=== PATIENT | female | born 1980 | race African-American/Black ===

== ENCOUNTER 2023-12-12 12:40 | Emergency (ER) | payer MEDICARE ==
[~2023-12-12] VITALS: Ht 147.3 cm; Wt 63.0 kg
[~2023-12-12 12:40] MED LIST: ATIV1TAB10 PO; BACL1TAB9 PO; CYMB60CA4 PO; DICL75TA PO; LINZ72CA PO; LYRI150C PO; NEUR600T PO; ONDA-84 PO; OXYC20TA2 PO; PROM25TA12 PO; VENTAER INH; flovent diskus INH; phenergan PO
[2023-12-12 12:46] VITALS: TEMP 98.8
[2023-12-12] MEDS: ACETAMINOPHEN 500 MG TAB PO ONE (14:41)
[2023-12-12] MEDS ORDERED: NARC1SPR NARES (16:28)
[2023-12-12] MEDS ORDERED: PERCOCET PO (16:28)
[2023-12-12] MEDS: LIDOCAINE 5% (LIDODERM) PATCH TD ONE (16:28)
[2023-12-12] MEDS: KETOROLAC 30 MG/ML 1ML VIAL IM ONE (16:28)
[2023-12-12 16:53] VITALS: BP 145/94; O2SAT 97
[2023-12-13] MEDS ORDERED: LYRI150C PO (10:16)
== END 2023-12-12 16:54 | disposition home or self-care (01) ==
LOC: M ED 12:40
DX: M51.369 Other intervertebral disc degeneration, lumbar region without mention of lumbar back pain or lower extremity pain (principal); F41.9 Anxiety disorder, unspecified; K58.9 Irritable bowel syndrome, unspecified; Z85.3 Personal history of malignant neoplasm of breast; Z92.21 Personal history of antineoplastic chemotherapy; F17.200 Nicotine dependence, unspecified, uncomplicated; Z79.899 Other long term (current) drug therapy; Z88.2 Allergy status to sulfonamides; Z88.8 Allergy status to other drugs, medicaments and biological substances
CPT/HCPCS: 72110; 96372; 99283; J1100; J1885

== ENCOUNTER → 2024-01-13 | Outpatient (CLI) | payer MEDICARE ==
[~2024-01-13] VITALS: Ht 147.3 cm; Wt 63.6 kg
[~2024-01-13] MED LIST changes: +NARC1SPR NARES; +PERCOCET PO; +PROC5TAB57 PO
[2024-01-13 10:39] VITALS: BP 139/81; O2SAT 100
[2024-01-13 11:37] LABS: AMPHETAMINES LEVEL URINE NEGATIVE (NEGATIVE); BARBITURATES URINE NEGATIVE (NEGATIVE); BENZODIAZEPINES URINE NEGATIVE (NEGATIVE); COCAINE METABOLITE URINE NEGATIVE (NEGATIVE); METHADONE URINE NEGATIVE (NEGATIVE); PHENCYCLIDINE URINE NEGATIVE (NEGATIVE)
[2024-01-13 11:42] LABS: CANNABINOIDS URINE POSITIVE (NEGATIVE); OPIATES URINE POSITIVE (NEGATIVE)
== END ==
LOC: M PAL 10:03
PROVIDERS: ATTEND Nurse Practitioner Adult Health
DX: C50.912 Malignant neoplasm of unspecified site of left female breast (principal); G89.29 Other chronic pain; M25.559 Pain in unspecified hip; M54.50 Low back pain, unspecified; F41.8 Other specified anxiety disorders; G89.3 Neoplasm related pain (acute) (chronic); R11.0 Nausea; F17.200 Nicotine dependence, unspecified, uncomplicated; Z51.5 Encounter for palliative care; Z88.1 Allergy status to other antibiotic agents; Z88.2 Allergy status to sulfonamides; Z79.891 Long term (current) use of opiate analgesic; Z79.899 Other long term (current) drug therapy; Z88.8 Allergy status to other drugs, medicaments and biological substances; Z80.7 Family history of other malignant neoplasms of lymphoid, hematopoietic and related tissues; Z90.13 Acquired absence of bilateral breasts and nipples; Z92.21 Personal history of antineoplastic chemotherapy; Z92.3 Personal history of irradiation
CPT/HCPCS: 80307; G0463

== ENCOUNTER → 2024-02-16 | Outpatient (CLI) | payer MEDICARE ==
[~2024-02-16] VITALS: Ht 147.3 cm; Wt 60.0 kg
[2024-02-16 08:17] VITALS: BP 133/90; O2SAT 95
== END ==
LOC: M PAL 08:05
PROVIDERS: ATTEND Nurse Practitioner Adult Health
DX: Z51.5 Encounter for palliative care (principal); C50.912 Malignant neoplasm of unspecified site of left female breast; G89.3 Neoplasm related pain (acute) (chronic); G89.29 Other chronic pain; I89.0 Lymphedema, not elsewhere classified; M54.50 Low back pain, unspecified; M25.551 Pain in right hip; R11.0 Nausea; F41.8 Other specified anxiety disorders; F17.200 Nicotine dependence, unspecified, uncomplicated; Z88.1 Allergy status to other antibiotic agents; Z88.2 Allergy status to sulfonamides; Z88.8 Allergy status to other drugs, medicaments and biological substances; Z79.891 Long term (current) use of opiate analgesic; Z79.899 Other long term (current) drug therapy; Z80.6 Family history of leukemia; Z80.7 Family history of other malignant neoplasms of lymphoid, hematopoietic and related tissues; Z90.13 Acquired absence of bilateral breasts and nipples; Z92.21 Personal history of antineoplastic chemotherapy; Z92.3 Personal history of irradiation

== ENCOUNTER → 2024-04-19 | Outpatient (CLI) | payer MEDICARE ==
[~2024-04-19] MED LIST changes: +HYDR50TA70 PO
== END ==
LOC: M PAL 15:12
PROVIDERS: ATTEND Family Medicine
DX: C50.919 Malignant neoplasm of unspecified site of unspecified female breast (principal); F41.9 Anxiety disorder, unspecified; Z90.13 Acquired absence of bilateral breasts and nipples; Z92.3 Personal history of irradiation; Z92.21 Personal history of antineoplastic chemotherapy; Z79.891 Long term (current) use of opiate analgesic; Z79.899 Other long term (current) drug therapy; Z88.2 Allergy status to sulfonamides; Z88.8 Allergy status to other drugs, medicaments and biological substances

== ENCOUNTER → 2024-05-17 | Outpatient (CLI) | payer MEDICARE ==
[~2024-05-17] VITALS: Ht 147.3 cm; Wt 58.3 kg
[~2024-05-17] MED LIST changes: +MIRA3350 PO; +SENN8.6T28 PO
[2024-05-17 15:08] VITALS: BP 108/71; O2SAT 94
== END ==
LOC: M PAL 14:55
PROVIDERS: ATTEND Physician Assistant
DX: C50.919 Malignant neoplasm of unspecified site of unspecified female breast (principal); K59.00 Constipation, unspecified; Z90.12 Acquired absence of left breast and nipple; Z92.21 Personal history of antineoplastic chemotherapy; Z92.3 Personal history of irradiation; I89.0 Lymphedema, not elsewhere classified; G89.29 Other chronic pain; Z79.899 Other long term (current) drug therapy; Z88.2 Allergy status to sulfonamides; Z88.8 Allergy status to other drugs, medicaments and biological substances

== ENCOUNTER → 2024-09-11 | Outpatient (CLI) | payer MEDICARE ==
[~2024-09-11] VITALS: Ht 148.6 cm; Wt 52.7 kg
[~2024-09-11] MED LIST changes: +ATRO0.063 INH; +FLUT250B IH; +IBUP80TA PO; +IPRAINH INH; +PRED10TA2 PO; +PRIL20TA2 PO; +SUBO2MIS SL
[2024-09-11 13:35] VITALS: BP 163/108; O2SAT 97
== END ==
LOC: M PAL 13:21
PROVIDERS: ATTEND Physician Assistant
DX: Z51.5 Encounter for palliative care (principal); Z85.3 Personal history of malignant neoplasm of breast; Z90.13 Acquired absence of bilateral breasts and nipples; Z92.21 Personal history of antineoplastic chemotherapy; Z92.3 Personal history of irradiation; G89.29 Other chronic pain; Z79.891 Long term (current) use of opiate analgesic; Z88.2 Allergy status to sulfonamides; Z88.5 Allergy status to narcotic agent; Z88.6 Allergy status to analgesic agent; Z79.899 Other long term (current) drug therapy

== ENCOUNTER 2024-09-16 11:30 | Inpatient (IN) | payer MEDICARE ==
[~2024-09-16] VITALS: Ht 147.3 cm; Wt 52.5 kg
[~2024-09-16 11:30] MED LIST changes: -ATRO0.063 INH
[2024-09-16 13:27] LABS: BASO # 0.1 10^3/uL (0.0-0.2); BASO % 0.5 % (0.0-1.0); EOS # 0.1 10^3/uL (0.0-0.5); EOS % 0.5 % (0.0-3.0); LYMPH # 0.9 10^3/uL (1.5-5.0); LYMPH % 7.4 % (24.0-44.0); MONO # 1.3 10^3/uL (0.0-0.8); MONO % 10.0 % (2.0-8.0); NEUTROPHILS # 10.3 10^3/uL (1.5-8.5); NEUTROPHILS % 81.1 % (36.0-66.0); PLATELET COUNT, AUTOMATED 241 10^3/uL (150-450)
[2024-09-16 13:39] LABS: C REACTIVE PROTEIN QUANTITATIV 19.04 MG/DL (<1.0); CALCIUM LEVEL 9.0 MG/DL (8.5-10.1); CARBON DIOXIDE LEVEL 33 MMOL/L (20-31); CHLORIDE LEVEL 98 MMOL/L (98-107); CREATININE FOR GFR 0.66 MG/DL (0.55-1.30); GLOMERULAR FILTRATION RATE > 90.0 (>58); POTASSIUM SERUM 3.3 MMOL/L (3.5-5.1); SODIUM LEVEL 141 MMOL/L (136-145)
[2024-09-16 13:40] LABS: ERYTHROCYTE SEDIMENTATION RATE 77 mm/hr (0-20)
[2024-09-16] MEDS ORDERED: ISOVUE-370 76% 100 ML VIAL As Ordered ONE (14:12)
[2024-09-16] MEDS: ceFAZolin SODIUM 2 GM in DEXTROSE 5% (D5W) ADV/MINI-BAG 50 ML IV ONE (14:28)
[2024-09-16] MEDS ORDERED: ATRO0.063 INH (15:33)
[2024-09-16] MEDS ORDERED: VENTAER INH (15:33)
[2024-09-16] MEDS ORDERED: ONDA-84 PO (15:45)
[2024-09-16] MEDS ORDERED: OXYC20TA2 PO (15:45)
[2024-09-16] MEDS ORDERED: HOME MED LIST COMPLETE! XX SCH (15:50)
[2024-09-16] MEDS: NS (Normal Saline) 0.9% 1,000 ML IV ONE (16:23)
[2024-09-16] MEDS ORDERED: ONDANSETRON 4MG TAB PO PRN (16:45)
[2024-09-16] MEDS: FLUTICASONE HFA 220 MCG 12 GM INHALER INH SCH (20:41)
[2024-09-16] MEDS: IPRATROPIUM HFA INHALER 12.9 GRAMS INH SCH (20:41)
[2024-09-16] MEDS: PREGABALIN 75 MG CAP PO SCH (21:51)
[2024-09-16] MEDS: ceFAZolin SODIUM 2 GM in DEXTROSE 5% (D5W) ADV/MINI-BAG 50 ML IV SCH (21:52)
[2024-09-16 22:00] VITALS: BP 144/95; TEMP 97.7; O2SAT 100
[2024-09-16] MEDS: LR 1,000 ML IV SCH (22:34)
[2024-09-16] MEDS: BACLOFEN 10 MG TAB PO PRN (23:02)
[2024-09-17] VITALS (7 sets, daily range): BP systolic 140–169; BP diastolic 83–115; TEMP 97.4–98.8; O2SAT 93–99
[2024-09-17] MEDS: ACETAMINOPHEN 325 MG TAB PO PRN (01:36)
[2024-09-17 02:52] LABS: AMPHETAMINES LEVEL URINE NEGATIVE (NEGATIVE); BARBITURATES URINE NEGATIVE (NEGATIVE); BENZODIAZEPINES URINE NEGATIVE (NEGATIVE); COCAINE METABOLITE URINE NEGATIVE (NEGATIVE); METHADONE URINE NEGATIVE (NEGATIVE); PHENCYCLIDINE URINE NEGATIVE (NEGATIVE)
[2024-09-17 02:54] LABS: CANNABINOIDS URINE POSITIVE (NEGATIVE); OPIATES URINE POSITIVE (NEGATIVE)
[2024-09-17 06:48] LABS: PLATELET COUNT, AUTOMATED 204 10^3/uL (150-450)
[2024-09-17 06:54] LABS: INR 1.06
[2024-09-17 07:06] LABS: ALT/SGPT < 9 U/L (7.0-40); AST/SGOT 13 U/L (<34); CALCIUM LEVEL 8.3 MG/DL (8.5-10.1); CARBON DIOXIDE LEVEL 30 MMOL/L (20-31); CHLORIDE LEVEL 103 MMOL/L (98-107); CREATININE FOR GFR 0.59 MG/DL (0.55-1.30); GLOMERULAR FILTRATION RATE > 90.0 (>58); MAGNESIUM LEVEL 1.5 MG/DL (1.8-2.4); POTASSIUM SERUM 3.4 MMOL/L (3.5-5.1); SODIUM LEVEL 140 MMOL/L (136-145)
[2024-09-17 08:04] LABS: ESTIMATED AVERAGE GLUCOSE 100.0 MG/DL (60-110)
[2024-09-17] MEDS: ISOVUE-300 61% 100 ML VIAL IV SCH (08:05)
[2024-09-17] MEDS: NS (Normal Saline) 0.9% 1,000 ML IV SCH (08:05)
[2024-09-17] MEDS: SODIUM CHLORIDE 0.9% 1000 ML XX SCH (08:05)
[2024-09-17] MEDS ORDERED: VANCOMYCIN HCL 1,000 MG, VIAL MATE ADAPTER 1 EACH in NS 250 ML IV SCH (08:45)
[2024-09-17] MEDS: MIDAZOLAM INJ 2 MG/2 ML VIAL IV PRN (08:46)
[2024-09-17] MEDS: ENOXAPARIN 40 MG/0.4 ML SYRINGE (J1650 PER 10MG) SC SCH (09:00)
[2024-09-17] MEDS ORDERED: MIDAZOLAM INJ 2 MG/2 ML VIAL As Ordered ONE (10:20)
[2024-09-17] MEDS: LIDOCAINE 1% MDV 20 ML VIAL SC SCH (10:45)
[2024-09-17] MEDS: VANCOMYCIN HCL 1,250 MG, VIAL MATE ADAPTER 1 EACH in NS 250 ML IV ONE (11:28)
[2024-09-17] MEDS: POTASSIUM CHLORIDE 10MEQ SR TABLET PO ONE (12:25)
[2024-09-17] MEDS: HYDROMORPHONE HCL 0.5 MG/0.5 ML SYRINGE IV PRN ×2 (13:23→19:45)
[2024-09-17] MEDS: MAG SULF 1GM/100ML (MAG RUN) 1 GM in IV 1 EA IV SCH (14:50)
[2024-09-17] MEDS: VANCOMYCIN HCL 750 MG, VIAL MATE ADAPTER 1 EACH in NS 250 ML IV SCH (18:14)
[2024-09-18 03:05] VITALS: BP 148/86; TEMP 97.4; O2SAT 90
[2024-09-18] MEDS: HYDROmorphone HCL 2 MG/ML 1 ML VIAL IV PRN (05:37)
[2024-09-18 07:09] LABS: BASO # 0.1 10^3/uL (0.0-0.2); BASO % 0.6 % (0.0-1.0); EOS # 0.1 10^3/uL (0.0-0.5); EOS % 0.8 % (0.0-3.0); LYMPH # 0.9 10^3/uL (1.5-5.0); LYMPH % 8.9 % (24.0-44.0); MONO # 1.5 10^3/uL (0.0-0.8); MONO % 15.4 % (2.0-8.0); NEUTROPHILS # 7.3 10^3/uL (1.5-8.5); NEUTROPHILS % 73.6 % (36.0-66.0); PLATELET COUNT, AUTOMATED 193 10^3/uL (150-450)
[2024-09-18 07:44] LABS: ALT/SGPT < 9 U/L (7.0-40); AST/SGOT 12 U/L (<34); C REACTIVE PROTEIN QUANTITATIV 13.45 MG/DL (<1.0); CALCIUM LEVEL 8.0 MG/DL (8.5-10.1); CARBON DIOXIDE LEVEL 27 MMOL/L (20-31); CHLORIDE LEVEL 101 MMOL/L (98-107); CREATININE FOR GFR 0.49 MG/DL (0.55-1.30); GLOMERULAR FILTRATION RATE > 90.0 (>58); MAGNESIUM LEVEL 1.5 MG/DL (1.8-2.4); POTASSIUM SERUM 3.7 MMOL/L (3.5-5.1); SODIUM LEVEL 138 MMOL/L (136-145)
[2024-09-18 07:46] VITALS: BP 152/90; TEMP 97.3; O2SAT 92
[2024-09-18] MEDS: KETOROLAC 30 MG/ML 1 ML VIAL IV SCH (08:11)
[2024-09-18] MEDS: PANTOPRAZOLE 40MG TAB PO SCH (08:11)
[2024-09-18] MEDS: ACETAMINOPHEN 500 MG TAB PO SCH (08:12)
[2024-09-18] MEDS: MIRALAX *UNIT DOSE* 17 GM PACKET PO SCH (09:00)
[2024-09-18] MEDS: MAGNESIUM OXIDE 400 MG TAB PO SCH (10:15)
[2024-09-18] MEDS: MAG SULF 1GM/100ML (MAG RUN) 1 GM in IV 1 EA IV ONE (10:15)
[2024-09-18] MEDS: HYDROMORPHONE HCL 0.5 MG/0.5 ML SYRINGE IV PRN (10:16)
[2024-09-18] MEDS ORDERED: BISACODYL 10 MG SUPP PR PRN (10:50)
[2024-09-18] MEDS: PIPERACILLIN/TAZOBACTAM SOD 3.375 GM in DEXTROSE 5% (D5W) ADV/MINI-BAG 50 ML IV SCH (11:44)
[2024-09-18 12:00] VITALS: BP 156/98; TEMP 96.9; O2SAT 95
[2024-09-18] MEDS: SENNOSIDES/DOCUSATE SODIUM 8.6 MG/50MG TAB PO SCH (13:41)
[2024-09-18 16:00] VITALS: BP 140/96; TEMP 97.4; O2SAT 96
[2024-09-18] MEDS: ONDANSETRON 4MG TAB PO PRN (16:57)
[2024-09-18 20:09] VITALS: BP 128/71; TEMP 97.2; O2SAT 92
[2024-09-18 23:57] VITALS: BP 121/75; TEMP 97.5; O2SAT 92
[2024-09-19] MEDS: HYDROMORPHONE HCL 0.5 MG/0.5 ML SYRINGE IV PRN (00:10)
[2024-09-19 07:33] VITALS: BP 142/86; TEMP 97.6; O2SAT 90
[2024-09-19 11:15] LABS: BASO # 0.0 10^3/uL (0.0-0.2); BASO % 0.3 % (0.0-1.0); EOS # 0.1 10^3/uL (0.0-0.5); EOS % 1.0 % (0.0-3.0); LYMPH # 0.6 10^3/uL (1.5-5.0); LYMPH % 6.3 % (24.0-44.0); MONO # 1.2 10^3/uL (0.0-0.8); MONO % 11.7 % (2.0-8.0); NEUTROPHILS # 8.1 10^3/uL (1.5-8.5); NEUTROPHILS % 80.4 % (36.0-66.0); PLATELET COUNT, AUTOMATED 201 10^3/uL (150-450)
[2024-09-19 11:35] LABS: CALCIUM LEVEL 8.2 MG/DL (8.5-10.1); CARBON DIOXIDE LEVEL 25 MMOL/L (20-31); CHLORIDE LEVEL 107 MMOL/L (98-107); CREATININE FOR GFR 0.59 MG/DL (0.55-1.30); GLOMERULAR FILTRATION RATE > 90.0 (>58); POTASSIUM SERUM 4.4 MMOL/L (3.5-5.1); SODIUM LEVEL 144 MMOL/L (136-145)
[2024-09-19] MEDS: VANCOMYCIN HCL 1,000 MG, VIAL MATE ADAPTER 1 EACH in NS 250 ML IV SCH (12:11)
[2024-09-19 15:20] VITALS: O2SAT 85
[2024-09-19 15:30] VITALS: O2SAT 98
[2024-09-19 16:00] VITALS: BP 124/84; TEMP 97.8; O2SAT 95
[2024-09-19 20:15] VITALS: BP 121/71; TEMP 97.7; O2SAT 98
[2024-09-20 03:36] VITALS: BP 147/92; TEMP 97; O2SAT 100
[2024-09-20 07:26] LABS: BASO # 0.0 10^3/uL (0.0-0.2); BASO % 0.4 % (0.0-1.0); CALCIUM LEVEL 8.0 MG/DL (8.5-10.1); CARBON DIOXIDE LEVEL 33 MMOL/L (20-31); CHLORIDE LEVEL 104 MMOL/L (98-107); CREATININE FOR GFR 0.65 MG/DL (0.55-1.30); EOS # 0.1 10^3/uL (0.0-0.5); EOS % 1.5 % (0.0-3.0); GLOMERULAR FILTRATION RATE > 90.0 (>58); LYMPH # 0.8 10^3/uL (1.5-5.0); LYMPH % 8.6 % (24.0-44.0); MAGNESIUM LEVEL 1.6 MG/DL (1.8-2.4); MONO # 1.2 10^3/uL (0.0-0.8); MONO % 12.5 % (2.0-8.0); NEUTROPHILS # 7.1 10^3/uL (1.5-8.5); NEUTROPHILS % 76.7 % (36.0-66.0); PLATELET COUNT, AUTOMATED 205 10^3/uL (150-450); POTASSIUM SERUM 3.6 MMOL/L (3.5-5.1); SODIUM LEVEL 142 MMOL/L (136-145)
[2024-09-20 07:43] VITALS: BP 136/71; TEMP 97.9; O2SAT 95
[2024-09-20 07:47] VITALS: O2SAT 95
[2024-09-20] MEDS: MAG SULF 1GM/100ML (MAG RUN) 1 GM in IV 1 EA IV ONE (09:09)
[2024-09-20 15:27] VITALS: BP 141/94; O2SAT 95
[2024-09-20 16:16] VITALS: TEMP 98.1
[2024-09-20 20:10] VITALS: BP 139/92; TEMP 98; O2SAT 93
[2024-09-20] MEDS: traZODone 50 MG TAB PO ONE (22:35)
[2024-09-20] MEDS: HYDROmorphone 2 MG TAB PO ONE (22:36)
[2024-09-21] VITALS (21 sets, daily range): BP systolic 119–146; BP diastolic 66–92; TEMP 97.3–98.9; O2SAT 35–100
[2024-09-21] MEDS: KETOROLAC TROMETHAMINE 10 MG TAB PO SCH (01:08)
[2024-09-21] MEDS: HYDROmorphone 2 MG TAB PO PRN (03:37)
[2024-09-21 08:37] LABS: BASO # 0.0 10^3/uL (0.0-0.2); BASO % 0.4 % (0.0-1.0); EOS # 0.1 10^3/uL (0.0-0.5); EOS % 0.5 % (0.0-3.0); LYMPH # 0.9 10^3/uL (1.5-5.0); LYMPH % 7.9 % (24.0-44.0); MONO # 0.5 10^3/uL (0.0-0.8); MONO % 4.6 % (2.0-8.0); NEUTROPHILS # 9.3 10^3/uL (1.5-8.5); NEUTROPHILS % 85.9 % (36.0-66.0); PLATELET COUNT, AUTOMATED 238 10^3/uL (150-450)
[2024-09-21 09:01] LABS: CALCIUM LEVEL 8.3 MG/DL (8.5-10.1); CARBON DIOXIDE LEVEL 29 MMOL/L (20-31); CHLORIDE LEVEL 105 MMOL/L (98-107); CREATININE FOR GFR 0.64 MG/DL (0.55-1.30); GLOMERULAR FILTRATION RATE > 90.0 (>58); POTASSIUM SERUM 3.7 MMOL/L (3.5-5.1); SODIUM LEVEL 144 MMOL/L (136-145)
[2024-09-21] MEDS: FUROSEMIDE 40 MG/4 ML VIAL IV ONE (10:41)
[2024-09-21] MEDS: IPRATROPIUM 0.5 MG/ALBUTEROL 2.5 MG INH SOL UD 3 ML NEB SCH (11:07)
[2024-09-21] MEDS: SYMBICORT 160/4.5MCG INHALER 6GM INH SCH (11:20)
[2024-09-21 11:29] LABS: ABG pH (ARTERIAL) 7.460 UNITS (7.350-7.450)
[2024-09-21 11:32] LABS: ABG BASE EXCESS 3.7 (-2.0-2.0); ABG HCO3 27.7 MMOL/L (22.0-26.0); ABG O2 SATURATION 84.4 % (95.0-99.0); ABG PARTIAL PRESSURE CO2 39.9 mmHg (35.0-45.0); ABG PARTIAL PRESSURE O2 51.1 mmHg (75.0-100.0); ABG STANDARD HCO3 27.5 MMOL/L. (22.0-26.0); ABG TOTAL CO2 29.0 MMOL/L (22.0-29.0)
[2024-09-21 15:38] LABS: C REACTIVE PROTEIN QUANTITATIV 24.11 MG/DL (<1.0)
[2024-09-21] MEDS ORDERED: ONDANSETRON 4MG 2ML VIAL As Ordered ONE (16:50)
[2024-09-21] MEDS ORDERED: LIDOCAINE 2% 100 MG/5 ML SDV (FOR ANES.) As Ordered ONE (16:50)
[2024-09-21] MEDS ORDERED: dexAMETHasone 4 MG/ML 1 ML VIAL As Ordered ONE (16:50)
[2024-09-21] MEDS: CEPHALEXIN 500 MG CAP PO SCH (17:40)
[2024-09-22] VITALS (24 sets, daily range): BP systolic 137–174; BP diastolic 85–101; TEMP 97–97.8; O2SAT 84–100
[2024-09-22 10:38] LABS: BASO # 0.0 10^3/uL (0.0-0.2); BASO % 0.1 % (0.0-1.0); EOS # 0.0 10^3/uL (0.0-0.5); EOS % 0.0 % (0.0-3.0); LYMPH # 0.6 10^3/uL (1.5-5.0); LYMPH % 4.3 % (24.0-44.0); MONO # 0.5 10^3/uL (0.0-0.8); MONO % 3.3 % (2.0-8.0); NEUTROPHILS # 12.4 10^3/uL (1.5-8.5); NEUTROPHILS % 91.6 % (36.0-66.0); PLATELET COUNT, AUTOMATED 254 10^3/uL (150-450)
[2024-09-22 11:07] LABS: CALCIUM LEVEL 8.7 MG/DL (8.5-10.1); CARBON DIOXIDE LEVEL 32 MMOL/L (20-31); CHLORIDE LEVEL 102 MMOL/L (98-107); CREATININE FOR GFR 0.61 MG/DL (0.55-1.30); GLOMERULAR FILTRATION RATE > 90.0 (>58); POTASSIUM SERUM 4.0 MMOL/L (3.5-5.1); SODIUM LEVEL 141 MMOL/L (136-145)
[2024-09-22] MEDS: LEVALBUTEROL HFA 45 MCG/ACT 15 GM INHALER INH SCH (12:00)
[2024-09-22] MEDS ORDERED: LEVALBUTEROL HFA 45 MCG/ACT 15 GM INHALER INH PRN (13:35)
[2024-09-22] MEDS ORDERED: SODIUM CHLORIDE 0.9% INJ 10 ML SYR IV PRN (14:50)
[2024-09-22] MEDS: FUROSEMIDE 40 MG/4 ML VIAL IV ONE (15:07)
[2024-09-22] MEDS: ERTAPENEM SODIUM 1 GM in NS MINI-BAG PLUS 50 ML IV SCH (15:09)
[2024-09-22] MEDS: SODIUM CHLORIDE 0.9% INJ 10 ML SYR IV SCH (15:11)
[2024-09-22] MEDS ORDERED: LEVALBUTEROL HFA 45 MCG/ACT 15 GM INHALER INH SCH (16:00)
[2024-09-22] MEDS: ALBUTEROL 90 MCG/ACT 8 GM HFA INHALER INH PRN (23:45)
[2024-09-23] VITALS (21 sets, daily range): BP systolic 143–184; BP diastolic 89–112; TEMP 96.7–97.8; O2SAT 85–100
[2024-09-23 05:38] LABS: BASO # 0.0 10^3/uL (0.0-0.2); BASO % 0.1 % (0.0-1.0); EOS # 0.0 10^3/uL (0.0-0.5); EOS % 0.0 % (0.0-3.0); LYMPH # 0.7 10^3/uL (1.5-5.0); LYMPH % 8.0 % (24.0-44.0); MONO # 0.6 10^3/uL (0.0-0.8); MONO % 6.7 % (2.0-8.0); NEUTROPHILS # 7.6 10^3/uL (1.5-8.5); NEUTROPHILS % 83.8 % (36.0-66.0); PLATELET COUNT, AUTOMATED 252 10^3/uL (150-450)
[2024-09-23 05:58] LABS: CALCIUM LEVEL 8.6 MG/DL (8.5-10.1); CARBON DIOXIDE LEVEL 35 MMOL/L (20-31); CHLORIDE LEVEL 101 MMOL/L (98-107); CREATININE FOR GFR 0.68 MG/DL (0.55-1.30); GLOMERULAR FILTRATION RATE > 90.0 (>58); POTASSIUM SERUM 4.2 MMOL/L (3.5-5.1); SODIUM LEVEL 145 MMOL/L (136-145)
[2024-09-23] MEDS: FLUTICASONE HFA 110 MCG 12 GM INHALER INH SCH (08:00)
[2024-09-23] MEDS: amLODIPine 10 MG TAB PO SCH (09:29)
[2024-09-23] MEDS: MORPHINE 2 MG/ML 1 ML VIAL IV PRN (13:54)
[2024-09-23] MEDS: HEPARIN LOCK FLUSH 100 UNITS/ML 3 ML SYRINGE IV SCH (17:12)
[2024-09-23] MEDS: SODIUM CHLORIDE 0.9% INJ 10 ML SYR IV SCH (17:13)
[2024-09-24] VITALS (38 sets, daily range): BP systolic 146–178; BP diastolic 89–98; TEMP 97.2–98.4; O2SAT 86–100
[2024-09-24 05:17] LABS: BASO # 0.0 10^3/uL (0.0-0.2); BASO % 0.1 % (0.0-1.0); EOS # 0.0 10^3/uL (0.0-0.5); EOS % 0.0 % (0.0-3.0); LYMPH # 0.8 10^3/uL (1.5-5.0); LYMPH % 9.1 % (24.0-44.0); MONO # 0.7 10^3/uL (0.0-0.8); MONO % 7.9 % (2.0-8.0); NEUTROPHILS # 7.5 10^3/uL (1.5-8.5); NEUTROPHILS % 81.4 % (36.0-66.0); PLATELET COUNT, AUTOMATED 295 10^3/uL (150-450)
[2024-09-24 05:41] LABS: CALCIUM LEVEL 8.3 MG/DL (8.5-10.1); CARBON DIOXIDE LEVEL 36 MMOL/L (20-31); CHLORIDE LEVEL 101 MMOL/L (98-107); CREATININE FOR GFR 0.67 MG/DL (0.55-1.30); GLOMERULAR FILTRATION RATE > 90.0 (>58); POTASSIUM SERUM 4.1 MMOL/L (3.5-5.1); SODIUM LEVEL 145 MMOL/L (136-145)
[2024-09-24] MEDS: MORPHINE 2 MG/ML 1 ML VIAL IV ONE (14:28)
[2024-09-24] MEDS: HEPARIN LOCK FLUSH 100 UNITS/ML 3 ML SYRINGE IV PRN (15:43)
[2024-09-24] MEDS: SODIUM CHLORIDE 0.9% INJ 10 ML SYR IV PRN (15:44)
[2024-09-25] VITALS (13 sets, daily range): BP systolic 127–167; BP diastolic 66–100; TEMP 97.1–97.8; O2SAT 92–99
[2024-09-25 05:57] LABS: BASO # 0.0 10^3/uL (0.0-0.2); BASO % 0.3 % (0.0-1.0); EOS # 0.0 10^3/uL (0.0-0.5); EOS % 0.1 % (0.0-3.0); LYMPH # 1.0 10^3/uL (1.5-5.0); LYMPH % 13.9 % (24.0-44.0); MONO # 0.8 10^3/uL (0.0-0.8); MONO % 11.0 % (2.0-8.0); NEUTROPHILS # 5.4 10^3/uL (1.5-8.5); NEUTROPHILS % 72.6 % (36.0-66.0); PLATELET COUNT, AUTOMATED 302 10^3/uL (150-450)
[2024-09-25 06:25] LABS: C REACTIVE PROTEIN QUANTITATIV 2.54 MG/DL (<1.0)
[2024-09-25 06:26] LABS: CALCIUM LEVEL 8.9 MG/DL (8.5-10.1); CARBON DIOXIDE LEVEL 40 MMOL/L (20-31); CHLORIDE LEVEL 96 MMOL/L (98-107); CREATININE FOR GFR 0.53 MG/DL (0.55-1.30); GLOMERULAR FILTRATION RATE > 90.0 (>58); POTASSIUM SERUM 3.6 MMOL/L (3.5-5.1); SODIUM LEVEL 144 MMOL/L (136-145)
[2024-09-25] MEDS: LIDOCAINE 1% MDV 20 ML VIAL SC SCH (17:53)
[2024-09-25] MEDS: ISOVUE-300 61% 100 ML VIAL IV SCH (17:53)
[2024-09-25] MEDS: SODIUM CHLORIDE 0.9% 1000 ML XX SCH (17:53)
[2024-09-26 03:33] VITALS: BP 135/85; TEMP 96.9; O2SAT 96
[2024-09-26 07:26] VITALS: BP 137/77; TEMP 97.6; O2SAT 96
[2024-09-26 11:50] VITALS: BP 139/85; TEMP 97; O2SAT 95
[2024-09-26 19:17] VITALS: BP 154/94; TEMP 97.8; O2SAT 96
[2024-09-27] VITALS (18 sets, daily range): BP systolic 138–196; BP diastolic 82–99; TEMP 97.2–98.2; O2SAT 89–98
[2024-09-27] MEDS: KETOROLAC 30 MG/ML 1 ML VIAL IV ONE (10:05)
[2024-09-27 19:02] LABS: BASO # 0.0 10^3/uL (0.0-0.2); BASO % 0.1 % (0.0-1.0); EOS # 0.0 10^3/uL (0.0-0.5); EOS % 0.3 % (0.0-3.0); LYMPH # 1.6 10^3/uL (1.5-5.0); LYMPH % 17.3 % (24.0-44.0); MONO # 1.2 10^3/uL (0.0-0.8); MONO % 13.2 % (2.0-8.0); NEUTROPHILS # 6.2 10^3/uL (1.5-8.5); NEUTROPHILS % 67.5 % (36.0-66.0); PLATELET COUNT, AUTOMATED 352 10^3/uL (150-450)
[2024-09-27 19:08] LABS: ERYTHROCYTE SEDIMENTATION RATE 9 mm/hr (0-20)
[2024-09-27 19:31] LABS: C REACTIVE PROTEIN QUANTITATIV 1.13 MG/DL (<1.0)
[2024-09-27 19:32] LABS: CALCIUM LEVEL 8.6 MG/DL (8.5-10.1); CARBON DIOXIDE LEVEL 39 MMOL/L (20-31); CHLORIDE LEVEL 97 MMOL/L (98-107); CREATININE FOR GFR 0.53 MG/DL (0.55-1.30); GLOMERULAR FILTRATION RATE > 90.0 (>58); POTASSIUM SERUM 3.6 MMOL/L (3.5-5.1); SODIUM LEVEL 142 MMOL/L (136-145)
[2024-09-28 00:17] VITALS: BP 154/90; TEMP 97.2; O2SAT 98
[2024-09-28 03:35] VITALS: BP 158/97; TEMP 97.1; O2SAT 98
[2024-09-28 08:25] VITALS: BP 174/95; TEMP 97; O2SAT 96
[2024-09-28] MEDS: KETOROLAC 30 MG/ML 1 ML VIAL IV ONE (08:35)
[2024-09-28] MEDS: HYDROMORPHONE HCL 0.5 MG/0.5 ML SYRINGE IV ONE (10:42)
[2024-09-28 12:00] VITALS: BP 161/94; TEMP 97.8; O2SAT 91
[2024-09-28 19:57] VITALS: BP 133/86; TEMP 97.2; O2SAT 95
[2024-09-29] VITALS (10 sets, daily range): BP systolic 117–171; BP diastolic 69–113; TEMP 97.3–97.9; O2SAT 91–99
[2024-09-29] MEDS: D5W/0.45% SODIUM CHLORIDE 1,000 ML IV SCH (06:51)
[2024-09-29] MEDS ORDERED: dexmedeTOMIDine (4 MCG/ML) 200 MCG/50 ML BTL As Ordered ONE (07:19)
[2024-09-29] MEDS: HYDROMORPHONE HCL 0.5 MG/0.5 ML SYRINGE IV ONE (07:23)
[2024-09-29] MEDS ORDERED: ROCURONIUM BROMIDE 50MG/5ML VIAL As Ordered ONE (08:06)
[2024-09-29] MEDS ORDERED: SUGAMMADEX SODIUM 500 MG/5 ML VIAL As Ordered ONE (08:06)
[2024-09-29] MEDS: KETOROLAC 30 MG/ML 1 ML VIAL IV ONE ×2 (08:23→14:48)
[2024-09-29] MEDS: SCOPOLAMINE 1MG TRANSDERMAL PATCH As Ordered ONE (09:06)
[2024-09-29] MEDS ORDERED: ALBUTEROL 6.7 GM INHALER **FOR ANES. CART/OMNICELL ONLY As Ordered ONE (09:35)
[2024-09-29] MEDS ORDERED: ACETAMINOPHEN 1000MG/100ML IV BAG As Ordered ONE (09:47)
[2024-09-29] MEDS ORDERED: HYDROmorphone HCL 2 MG/ML 1 ML VIAL As Ordered ONE (09:50)
[2024-09-29] MEDS ORDERED: LR 1,000 ML IV SCH (10:25)
[2024-09-29] MEDS ORDERED: ONDANSETRON 4MG 2ML VIAL IV PRN (10:25)
[2024-09-29] MEDS ORDERED: LABETALOL 100 MG/20 ML VIAL As Ordered ONE (10:33)
[2024-09-29] MEDS: HYDROMORPHONE HCL 0.5 MG/0.5 ML SYRINGE IV PRN (11:12)
[2024-09-29] MEDS: PERCOCET 5MG/325MG TAB PO ONE (21:22)
[2024-09-30 00:13] VITALS: BP 119/72; TEMP 97.2; O2SAT 98
[2024-09-30 04:51] VITALS: BP 115/72; TEMP 96.8; O2SAT 97
[2024-09-30] MEDS: KETOROLAC 30 MG/ML 1 ML VIAL IV ONE (07:30)
[2024-09-30 08:35] VITALS: BP 123/84; TEMP 97.7; O2SAT 99
[2024-09-30] MEDS: predniSONE 10 MG TAB PO SCH (09:33)
[2024-09-30] MEDS: ALPRAZolam 0.5 MG TAB PO ONE (10:55)
[2024-09-30 11:02] LABS: BASO # 0.0 10^3/uL (0.0-0.2); BASO % 0.1 % (0.0-1.0); EOS # 0.1 10^3/uL (0.0-0.5); EOS % 0.8 % (0.0-3.0); LYMPH # 1.7 10^3/uL (1.5-5.0); LYMPH % 14.9 % (24.0-44.0); MONO # 1.3 10^3/uL (0.0-0.8); MONO % 11.8 % (2.0-8.0); NEUTROPHILS # 8.2 10^3/uL (1.5-8.5); NEUTROPHILS % 71.5 % (36.0-66.0); PLATELET COUNT, AUTOMATED 334 10^3/uL (150-450)
[2024-09-30 11:11] LABS: ERYTHROCYTE SEDIMENTATION RATE 1 mm/hr (0-20)
[2024-09-30 11:27] LABS: C REACTIVE PROTEIN QUANTITATIV < 0.50 MG/DL (<1.0)
[2024-09-30 11:32] LABS: CALCIUM LEVEL 8.3 MG/DL (8.5-10.1); CARBON DIOXIDE LEVEL 35 MMOL/L (20-31); CHLORIDE LEVEL 97 MMOL/L (98-107); CREATININE FOR GFR 0.72 MG/DL (0.55-1.30); GLOMERULAR FILTRATION RATE > 90.0 (>58); MAGNESIUM LEVEL 1.9 MG/DL (1.8-2.4); POTASSIUM SERUM 3.5 MMOL/L (3.5-5.1); SODIUM LEVEL 142 MMOL/L (136-145)
[2024-09-30 15:21] VITALS: BP 128/78
[2024-09-30 20:00] VITALS: BP 131/83; TEMP 97.5; O2SAT 98
[2024-09-30] MEDS ORDERED: NALOXONE INJ 0.4 MG/1 ML VIAL IV PRN (20:45)
[2024-09-30] MEDS: traZODone 50 MG TAB PO ONE (20:52)
[2024-10-01] VITALS (7 sets, daily range): BP systolic 140–161; BP diastolic 85–104; TEMP 97.2–97.7; O2SAT 94–99
[2024-10-01] MEDS: ALPRAZolam 0.5 MG TAB PO PRN (00:21)
[2024-10-01] MEDS: KETOROLAC 30 MG/ML 1 ML VIAL IV ONE (06:43)
[2024-10-01] MEDS: ALPRAZolam 0.5 MG TAB PO ONE (10:46)
[2024-10-01 11:15] LABS: BASO # 0.0 10^3/uL (0.0-0.2); BASO % 0.1 % (0.0-1.0); EOS # 0.0 10^3/uL (0.0-0.5); EOS % 0.1 % (0.0-3.0); LYMPH # 1.2 10^3/uL (1.5-5.0); LYMPH % 7.6 % (24.0-44.0); MONO # 1.7 10^3/uL (0.0-0.8); MONO % 10.7 % (2.0-8.0); NEUTROPHILS # 13.1 10^3/uL (1.5-8.5); NEUTROPHILS % 80.9 % (36.0-66.0); PLATELET COUNT, AUTOMATED 376 10^3/uL (150-450)
[2024-10-01 11:23] LABS: C REACTIVE PROTEIN QUANTITATIV 1.06 MG/DL (<1.0); CALCIUM LEVEL 9.0 MG/DL (8.5-10.1); CARBON DIOXIDE LEVEL 35 MMOL/L (20-31); CHLORIDE LEVEL 99 MMOL/L (98-107); CREATININE FOR GFR 0.58 MG/DL (0.55-1.30); GLOMERULAR FILTRATION RATE > 90.0 (>58); POTASSIUM SERUM 3.9 MMOL/L (3.5-5.1); SODIUM LEVEL 143 MMOL/L (136-145)
[2024-10-01 11:29] LABS: ERYTHROCYTE SEDIMENTATION RATE 3 mm/hr (0-20)
[2024-10-02 04:00] VITALS: BP 162/115; TEMP 97.5; O2SAT 100
[2024-10-02] MEDS: KETOROLAC 30 MG/ML 1 ML VIAL IV ONE (07:01)
[2024-10-02 07:15] LABS: BASO # 0.0 10^3/uL (0.0-0.2); BASO % 0.1 % (0.0-1.0); EOS # 0.0 10^3/uL (0.0-0.5); EOS % 0.1 % (0.0-3.0); LYMPH # 1.2 10^3/uL (1.5-5.0); LYMPH % 8.9 % (24.0-44.0); MONO # 1.2 10^3/uL (0.0-0.8); MONO % 8.7 % (2.0-8.0); NEUTROPHILS # 11.3 10^3/uL (1.5-8.5); NEUTROPHILS % 81.3 % (36.0-66.0); PLATELET COUNT, AUTOMATED 357 10^3/uL (150-450)
[2024-10-02 07:46] LABS: C REACTIVE PROTEIN QUANTITATIV 1.03 MG/DL (<1.0); CALCIUM LEVEL 8.6 MG/DL (8.5-10.1); CARBON DIOXIDE LEVEL 36 MMOL/L (20-31); CHLORIDE LEVEL 98 MMOL/L (98-107); CREATININE FOR GFR 0.58 MG/DL (0.55-1.30); GLOMERULAR FILTRATION RATE > 90.0 (>58); POTASSIUM SERUM 4.3 MMOL/L (3.5-5.1); SODIUM LEVEL 141 MMOL/L (136-145)
[2024-10-02] MEDS ORDERED: CEFA500C2 PO (11:44)
[2024-10-02 12:00] VITALS: BP 126/98; TEMP 97.5; O2SAT 92
[2024-10-02 13:45] VITALS: O2SAT 99
[2024-10-02] MEDS ORDERED: MORPHINE 10 MG/ML 1 ML VIAL IM ONE (18:00)
[2024-10-02] MEDS: KETOROLAC 30 MG/ML 1 ML VIAL IV SCH (18:06)
[2024-10-02] MEDS: MORPHINE 10 MG/ML 1 ML VIAL IV ONE (18:07)
[2024-10-02 21:46] VITALS: BP 136/90; TEMP 97.1; O2SAT 90
[2024-10-02] MEDS: CYCLOBENZAPRINE 10 MG TABLET PO SCH (22:19)
[2024-10-03 05:40] VITALS: BP 156/99; TEMP 97.9; O2SAT 90
[2024-10-03 07:25] LABS: BASO # 0.0 10^3/uL (0.0-0.2); BASO % 0.2 % (0.0-1.0); EOS # 0.1 10^3/uL (0.0-0.5); EOS % 1.1 % (0.0-3.0); LYMPH # 1.6 10^3/uL (1.5-5.0); LYMPH % 12.2 % (24.0-44.0); MONO # 1.5 10^3/uL (0.0-0.8); MONO % 11.8 % (2.0-8.0); NEUTROPHILS # 9.6 10^3/uL (1.5-8.5); NEUTROPHILS % 73.9 % (36.0-66.0); PLATELET COUNT, AUTOMATED 345 10^3/uL (150-450)
[2024-10-03 07:42] LABS: CALCIUM LEVEL 8.4 MG/DL (8.5-10.1); CARBON DIOXIDE LEVEL 34 MMOL/L (20-31); CHLORIDE LEVEL 99 MMOL/L (98-107); CREATININE FOR GFR 0.69 MG/DL (0.55-1.30); GLOMERULAR FILTRATION RATE > 90.0 (>58); POTASSIUM SERUM 4.3 MMOL/L (3.5-5.1); SODIUM LEVEL 143 MMOL/L (136-145)
[2024-10-03 09:05] VITALS: BP 136/92
[2024-10-03] MEDS ORDERED: CYCL10TA20 PO (10:35)
[2024-10-04] MEDS ORDERED: BUPR2SUB SL (13:44)
== END 2024-10-03 12:20 | disposition home health service (06) | DRG 919 ==
LOC: M ED 11:30 → EEVIPCON 16:41 → M ED INP 16:41 → M MSPAV 22:15 → M PCU 09-17 22:10 → M MS5PR 09-29 01:09
PROVIDERS: ADMIT Internal Medicine; ATTEND Internal Medicine Nephrology
PROC: 0X9 Anatomical Regions, Upper Extremities, Drainage (ICD-10-PCS; principal; 2024-09-17 08:30)
PROC: 0JP Subcutaneous Tissue and Fascia, Removal (ICD-10-PCS; 2024-09-25)
PROC: 0HB5XZX Excision of Chest Skin, External Approach, Diagnostic (ICD-10-PCS; 2024-09-29)
DX: T81.31XA Disruption of external operation (surgical) wound, not elsewhere classified, initial encounter (principal); J80 Acute respiratory distress syndrome; L03.114 Cellulitis of left upper limb; L02.213 Cutaneous abscess of chest wall; L03.313 Cellulitis of chest wall; L02.414 Cutaneous abscess of left upper limb; Z90.13 Acquired absence of bilateral breasts and nipples; J45.909 Unspecified asthma, uncomplicated; G89.29 Other chronic pain; Z90.79 Acquired absence of other genital organ(s); F17.290 Nicotine dependence, other tobacco product, uncomplicated; Z79.899 Other long term (current) drug therapy; Z88.2 Allergy status to sulfonamides; Z88.8 Allergy status to other drugs, medicaments and biological substances; F41.9 Anxiety disorder, unspecified; I89.0 Lymphedema, not elsewhere classified; B96.1 Klebsiella pneumoniae [K. pneumoniae] as the cause of diseases classified elsewhere; J84.10 Pulmonary fibrosis, unspecified; Z85.3 Personal history of malignant neoplasm of breast; Z87.891 Personal history of nicotine dependence

== ENCOUNTER → 2024-10-20 | Outpatient (CLI) | payer MEDICARE ==
[~2024-10-20] MED LIST changes: +ATRO0.063 INH; +BUPR2SUB SL; +CEFA500C2 PO; +CYCL-707 PO; +CYCL10TA20 PO; +DULO1CAP6 PO; +ISOVUE-300 61% 100 ML VIAL As Ordered ONE; +OXYC-1 PO
[2024-10-20 15:18] VITALS: BP 148/90; TEMP 97.8; O2SAT 97
== END ==
LOC: M IRPRO 15:02
PROVIDERS: ATTEND Registered Nurse School
DX: T81.31XD Disruption of external operation (surgical) wound, not elsewhere classified, subsequent encounter (principal)
CPT/HCPCS: 49424; 76080; Q9967

== ENCOUNTER → 2024-10-24 | Outpatient (CLI) | payer MEDICARE ==
[~2024-10-24] VITALS: Ht 148.6 cm; Wt 54.6 kg
[~2024-10-24] MED LIST changes: -ISOVUE-300 61% 100 ML VIAL As Ordered ONE
[2024-10-24 09:30] VITALS: BP 136/78; O2SAT 98
== END ==
LOC: M PAL 09:23
PROVIDERS: ATTEND Physician Assistant
DX: Z51.5 Encounter for palliative care (principal); C50.919 Malignant neoplasm of unspecified site of unspecified female breast; Z90.13 Acquired absence of bilateral breasts and nipples; Z92.21 Personal history of antineoplastic chemotherapy; Z92.3 Personal history of irradiation; A41.01 Sepsis due to Methicillin susceptible Staphylococcus aureus; Z79.891 Long term (current) use of opiate analgesic; Z88.2 Allergy status to sulfonamides; Z88.5 Allergy status to narcotic agent; Z79.899 Other long term (current) drug therapy; Z79.52 Long term (current) use of systemic steroids; Z79.83 Long term (current) use of bisphosphonates

== ENCOUNTER → 2024-11-14 | Outpatient (CLI) | payer MEDICARE ==
[~2024-11-14] VITALS: Ht 157.5 cm; Wt 56.6 kg
[2024-11-14 11:04] VITALS: BP 135/96; O2SAT 95
== END ==
LOC: M PAL 10:47
PROVIDERS: ATTEND Physician Assistant
DX: Z51.5 Encounter for palliative care (principal); Z85.3 Personal history of malignant neoplasm of breast; Z90.13 Acquired absence of bilateral breasts and nipples; Z92.21 Personal history of antineoplastic chemotherapy; Z92.3 Personal history of irradiation; Z87.891 Personal history of nicotine dependence; Z79.891 Long term (current) use of opiate analgesic; Z88.2 Allergy status to sulfonamides; Z88.6 Allergy status to analgesic agent; Z79.899 Other long term (current) drug therapy; Z79.83 Long term (current) use of bisphosphonates
CPT/HCPCS: G0463; G2212

== ENCOUNTER 2024-11-29 15:29 | Outpatient (RCR) | payer MEDICARE | END 2024-12-05 | LOC: M PT 15:29 | PROVIDERS: ATTEND Internal Medicine Hematology & Oncology | DX: I89.0 Lymphedema, not elsewhere classified (principal) ==

== ENCOUNTER → 2024-12-07 | Outpatient (REF) | payer MEDICARE | LOC: M SFHCPLAZ 15:47 | PROVIDERS: ATTEND Family Medicine | DX: Z13.29 Encounter for screening for other suspected endocrine disorder (principal); Z13.1 Encounter for screening for diabetes mellitus; Z13.6 Encounter for screening for cardiovascular disorders ==

== ENCOUNTER → 2024-12-13 | Outpatient (CLI) | payer MEDICARE ==
[2024-12-13 19:22] LABS: ALT/SGPT 13 U/L (7.0-40); AST/SGOT 16 U/L (<34); CALCIUM LEVEL 9.3 MG/DL (8.5-10.1); CARBON DIOXIDE LEVEL 30 MMOL/L (20-31); CHLORIDE LEVEL 105 MMOL/L (98-107); CHOLESTEROL LEVEL 168 MG/DL (<200); CHOLESTEROL RISK RATIO 3.70 (<5); CREATININE FOR GFR 0.93 MG/DL (0.55-1.30); GLOMERULAR FILTRATION RATE 76.8 (>58); LDL CHOLESTEROL 86.3 MG/DL (<100); NON-HDL-C 122.7 MG/DL; POTASSIUM SERUM 3.8 MMOL/L (3.5-5.1); SODIUM LEVEL 142 MMOL/L (136-145); TRIGLYCERIDES LEVEL 182 MG/DL (<150)
[2024-12-13 19:24] LABS: FREE T4 1.01 NG/DL (0.89-1.76)
[2024-12-13 19:34] LABS: ESTIMATED AVERAGE GLUCOSE 105.0 MG/DL (60-110)
== END ==
LOC: M PLALAB 14:25
PROVIDERS: ATTEND Family Medicine
DX: Z13.29 Encounter for screening for other suspected endocrine disorder (principal); Z13.1 Encounter for screening for diabetes mellitus; Z13.6 Encounter for screening for cardiovascular disorders; Z79.899 Other long term (current) drug therapy

== ENCOUNTER 2024-12-27 14:15 | Outpatient (RCR) | payer MEDICARE ==
[~2024-12-27 14:15] MED LIST changes: -PROC5TAB57 PO; +PROC5TAB81 PO
[2025-01-03] MEDS ORDERED: DULO1CAP6 PO (09:57)
== END 2025-01-05 ==
LOC: M PT 14:15
PROVIDERS: ATTEND Internal Medicine Hematology & Oncology
DX: I89.0 Lymphedema, not elsewhere classified (principal)